=== PATIENT | male | born 1990 | race Two or more races ===

== ENCOUNTER 2016-12-15 21:50 | Emergency (ER) | payer SELFPAY ==
[~2016-12-15] VITALS: Ht 182.9 cm; Wt 99.8 kg
[2016-12-15 22:42] LABS: BASO % 0 % (0-3); EOS % 2 % (0-3); HEMATOCRIT 42.3 % (39.0-53.0); LYMPH % 9 % (24-48); MEAN CORPUSCULAR HEMOGLOBIN 29 pg (25-35); MEAN CORPUSCULAR HGB CONC 33 g/dL (31-37); MEAN CORPUSCULAR VOLUME 87 fL (79-100); MONO % 6 % (0-9); NEUT % 83 % (31-73); PLATELET COUNT 182 x10^3/uL (140-400); RED BLOOD COUNT 4.87 x10^6/uL (4.30-5.70); RED CELL DISTRIBUTION WIDTH 12.9 % (11.5-14.5); WHITE BLOOD COUNT 11.3 x10^3/uL (4.0-11.0)
[2016-12-15] MEDS ORDERED: IV NORMAL SALINE 1000ML BAG 1,000 ML IV ONE (22:45)
[2016-12-15] MEDS ORDERED: ALBUTEROL SULFATE 2.5 MG/3 ML NEBU. CONT NEB ONE (22:45)
[2016-12-15] MEDS ORDERED: IPRATROPIUM BROMIDE 0.5 MG/2.5 ML NEBU. NEB ONE (22:45)
[2016-12-15] MEDS ORDERED: predniSONE 20 MG TABLET PO ONE (22:45)
[2016-12-15 22:51] LABS: CALCIUM 8.7 mg/dL (8.5-10.1); GFR 89.6; POTASSIUM 3.6 mmol/L (3.5-5.1)
[2016-12-15 22:57] LABS: ALBUMIN 3.8 g/dL (3.4-5.0); ALBUMIN/GLOBULIN RATIO 0.8 (1.0-1.7); TOTAL BILIRUBIN 0.4 mg/dL (0.2-1.0); TOTAL PROTEIN 8.3 g/dL (6.4-8.2)
--- NOTE | 2016-12-15 23:50 | ED.ADGEN ---
Past Medical History Past Medical History: Asthma Additional Past Medical Histor: BENIGN PALPITATIONS Past Surgical History: Other Additional Past Surgical Histo: HERNIA Alcohol Use: Occasionally Drug Use: None Adult General Chief Complaint Chief Complaint: SHORTNESS OF BREATH HPI HPI Patient is a 26 year old -[place] male with history of asthma who presents with fever, cough, congestion, shortness breath and chest tightness and wheezing starting earlier this evening. Patient denies nausea vomiting and sweats. Patient does not routinely use inhalers or have asthma symptoms. He is not access to albuterol inhaler at home. Patient had inspiratory next 3 wheezes on evaluation with rhonchi. No other acute symptoms or complaints Review of Systems Review of Systems Review symptoms as per history of present illness. All other review symptoms are negative. Current Medications Current Medications Current Medications Medications (Trade) Dose Ordered Sig/Stephanie Start Time Stop Time Status Last Admin Dose Admin Albuterol Sulfate (Ventolin Neb Soln) 10 mg 1X ONCE 12/15/16 22:45 12/15/16 22:46 DC 12/15/16 23:25 10 MG Ipratropium [place] (Atrovent) 0.5 mg 1X ONCE 12/15/16 22:45 12/15/16 22:46 DC 12/15/16 23:15 0.5 MG Prednisone (Prednisone) 60 mg 1X ONCE 12/15/16 22:45 12/15/16 22:46 DC 12/15/16 23:20 60 MG Sodium Chloride 1,000 ml @ 1,000 mls/hr 1X ONCE 12/15/16 22:45 12/15/16 23:44 DC 12/15/16 23:20 1,000 MLS/HR Allergies Allergies Allergies Coded Allergies Type Severity Reaction Last Updated Verified No Known Drug Allergies 12/15/16 No Physical Exam Physical Exam Constitutional: Well developed, well nourished, no acute distress, non-toxic appearance. [] HENT: Normocephalic, atraumatic, bilateral external ears normal, oropharynx moist, no oral exudates, nose normal. [] Eyes: PERRLA, EOMI, conjunctiva normal, no discharge. [] Neck: Normal range of motion, no tenderness, supple, no stridor. [] Cardiovascular:Heart rate regular rhythm, no murmur [] Lungs & Thorax: Patient's nonlabored, diminished breath sounds bilaterally with prolonged expiratory phase and inspiratory and expiratory wheezes.No rhonchi or rales No conversational dyspnea. . [] Abdomen: Bowel sounds normal, soft, no tenderness, no masses, no pulsatile masses. [] Skin: Warm, dry, no erythema, no rash. [] Back: No tenderness, no CVA tenderness. [] Extremities: No tenderness, no cyanosis, no clubbing, ROM intact, no edema. [] Neurologic: Alert and oriented X 3, normal motor function, normal sensory function, no focal deficits noted. [] Psychologic: Affect normal, judgement normal, mood normal. [] Current Patient Data Vital Signs Vital Signs Date Time Temp Pulse Resp B/P (MAP) Pulse Ox O2 Delivery O2 Flow Rate FiO2 12/16/16 01:00 108 145/76 (99) 94 Room Air 12/15/16 21:59 100.6 22 100.6 Lab Values Laboratory Tests Test 12/15/16 22:15 White Blood Count 11.3 x10^3/uL (4.0-11.0) H Red Blood Count 4.87 x10^6/uL (4.30-5.70) Hemoglobin 14.0 g/dL (13.0-17.5) Hematocrit 42.3 % (39.0-53.0) Mean Corpuscular Volume 87 fL (79-100) Mean Corpuscular Hemoglobin 29 pg (25-35) Mean Corpuscular Hemoglobin Concent 33 g/dL (31-37) Red Cell Distribution Width 12.9 % (11.5-14.5) Platelet Count 182 x10^3/uL (140-400) Neutrophils (%) (Auto) 83 % (31-73) H Lymphocytes (%) (Auto) 9 % (24-48) L Monocytes (%) (Auto) 6 % (0-9) Eosinophils (%) (Auto) 2 % (0-3) Basophils (%) (Auto) 0 % (0-3) Neutrophils # (Auto) 9.4 x10^3uL (1.8-7.7) H Lymphocytes # (Auto) 1.0 x10^3/uL (1.0-4.8) Monocytes # (Auto) 0.6 x10^3/uL (0.0-1.1) Eosinophils # (Auto) 0.2 x10^3/uL (0.0-0.7) Basophils # (Auto) 0.0 x10^3/uL (0.0-0.2) Sodium Level 140 mmol/L (136-145) Potassium Level 3.6 mmol/L (3.5-5.1) Chloride Level 103 mmol/L (98-107) Carbon Dioxide Level 25 mmol/L (21-32) Anion Gap 12 (6-14) Blood Urea Nitrogen 10 mg/dL (8-26) Creatinine 1.0 mg/dL (0.7-1.3) Estimated GFR (Cockcroft-Gault) 89.6 BUN/Creatinine Ratio 10 (6-20) Glucose Level 109 mg/dL (70-99) H Calcium Level 8.7 mg/dL (8.5-10.1) Total Bilirubin 0.4 mg/dL (0.2-1.0) Aspartate Amino Transferase (AST) 27 U/L (15-37) Alanine Aminotransferase (ALT) 35 U/L (16-63) Alkaline Phosphatase 85 U/L (46-116) Total Protein 8.3 g/dL (6.4-8.2) H Albumin 3.8 g/dL (3.4-5.0) Albumin/Globulin Ratio 0.8 (1.0-1.7) L Laboratory Tests 12/15/16 22:15 Laboratory Tests 12/15/16 22:15 EKG EKG [EKG: Sinus tach, rate 100, no acute ST-T wave changes.] Radiology/Procedures Radiology/Procedures [Chest x-ray: No acute cardiopulmonary disease.] Course & Med Decision Making Course & Med Decision Making Pertinent Labs and Imaging studies reviewed. (See chart for details) [Patient with acute bronchitis with bronchospasm consistent with viral illness. Prednisone, albuterol Atrovent given with significant improvement. We'll treat supportively with PCP follow-up. Return precautions reviewed.] Dragon Disclaimer Dragon Disclaimer This electronic medical record was generated, in whole or in part, using a voice recognition dictation system. ROSIO CUMMINS DO Dec 15, 2016 23:50
[2016-12-16 01:00] VITALS: BP 145/76
--- NOTE | 2016-12-16 06:29 | EKG ---
[facility] [address] [place] [id number] Test Date: 2016-12-15 Test Time: 21:59:56 Pat Name: SHREE PARNELL Department: Room: Gender: M Marine Technician: : 1990 Requested By: ROSIO CUMMINS Order Number: [id number] Reading MD: Antonio Ziegler Measurements Intervals [place] Rate: 100 P: 51 GA: 138 QRS: 29 QRSD: 94 T: 15 QT: 308 QTc: 400 Interpretive Statements SINUS RHYTHM Electronically Signed On 12-18-2016 15:01:55 CDT by Antonio Ziegler
--- NOTE | 2016-12-16 07:40 | RAD ---
AP chest radiograph 12/15/2016 Indication: Chest pain. Comparison: None. Findings: Cardiac and mediastinal silhouettes are within normal limits. No pleural effusion, pneumothorax or focal consolidation. Impression: No acute cardiopulmonary abnormality.
== END 2016-12-16 01:30 | disposition home or self-care (01) ==
LOC: ER 21:50
DX: R06.02 Shortness of breath (principal); R05 Cough; R50.9 Fever, unspecified; R07.89 Other chest pain; R06.2 Wheezing; R09.81 Nasal congestion; J45.909 Unspecified asthma, uncomplicated
CPT/HCPCS: 36415; 71010; 80053; 85027; 87040; 93005; 94250; 94644; 96360; 99285; J7030; J7512; J7613; J7644; 94640